=== PATIENT | female | born 1980 | race Caucasian/White ===

== ENCOUNTER 2017-09-26 10:09 | Day surgery (SDC) | payer OTHER ==
[2017-09-26] MEDS ORDERED: FENTAnyl 50 MCG/ML VIAL (12:02)
[2017-09-26] MEDS ORDERED: MIDAZOLAM 1 MG/ML 2 ML INJ ×2 (12:02)
== END 2017-09-26 15:27 | disposition home or self-care (01) ==
LOC: GIL 10:09
DX: K29.50 Unspecified chronic gastritis without bleeding (principal); K44.9 Diaphragmatic hernia without obstruction or gangrene
CPT/HCPCS: 43239; 88305; 88312